=== PATIENT | male | born 1960 | race Caucasian/White ===

== ENCOUNTER 2016-07-19 20:39 | Inpatient (IN) | payer OTHER ==
--- NOTE | ~2016-07-19 | DS ---
Discharge Summary [facility] [address] [place]. [address] NAME: SOILA KELLEY : 62 STATUS : DIS IN PAT#: [id number] AGE: 56 ADM/REG DATE : 07/19/16 MR#: [id number] REPORT SERV DATE: 07/30/16 DICTATED BY: KANWAL GARCIA DATE: 07/29/16 REPORT STATUS : Draft TRANSCRIBED BY: MODPeewee DATE: 07/29/16 Data Collection from hospitalization DISCHARGE DIAGNOSIS(ES): 1. Mzr-GN-fzswddcgd myocardial infarction. 2. Coronary artery disease. 3. Colorectal cancer. 4. History of H. pylori infection. CONSULTATIONS: Andrae Kumar MD PROCEDURES PERFORMED: Cardiac catheterization and PCI, 07/20/2016. MEDICATIONS: Aspirin 81 mg daily, Lipitor 40 mg at bedtime, Plavix 75 mg daily, Colace 100 mg twice daily, Prinivil 2.5 mg daily, Lopressor 12.5 mg twice daily, Habitrol 14 mg daily, Prilosec 40 mg before breakfast, Percocet 10/325 one four times daily as needed, Phenergan 25 mg four times daily as needed, Pyridium 200 mg three times daily as needed, Zofran 8 mg three times daily as needed, and Remeron 15 mg at bedtime as needed. CONDITION AT DISCHARGE: Upon discharge, he did appear to be doing well. DISPOSITION: He had been discharged home to continue a 4 g sodium, low cholesterol, cardiac diet with activity as discussed. He was to follow up with Dr. Josue Aguayo on 08/25/2016. HOSPITAL COURSE: This 56-year-old male had no previous cardiovascular history and had a recent diagnosis of colorectal cancer. He had had substernal chest pain radiating to his left arm of approximately three days' duration. He was felt to have T3 or T4 disease and was recently diagnosed with colon cancer and he had been undergoing chemotherapy and radiation therapy prior to eventual surgical resection which had not yet been performed. He had been followed by Dr. Mason Calixto for his primary care and Dr. Andrae Kumar for his oncology care. Approximately, three days prior to admission, he began to notice a left- sided arm pain. He described this as an ache which was associated with a feeling of vague nausea, not feeling well. The pain became more severe and spread into the patient's chest. On the evening prior to admission, he had a particularly severe episode which woke him from sleep. He presented to [facility] where he was found to have elevated cardiac biomarkers. He was admitted for non ST-segment elevation myocardial infarction to undergo further evaluation and treatment. Upon admission to the hospital, he had been placed on acute coronary syndrome, non ST-elevation myocardial infarction orders. He was begun on metoprolol 25 mg twice daily. He had also been placed on cardiovascular heparin drip. Following the day of admission, his metoprolol was decreased to 12.5 mg twice daily and was to be held for systolic blood pressure below 110 or heart rate below 60. He had also been placed on Lipitor 40 mg at bedtime. Cardiac catheterization had been discussed with the patient. He was agreeable to proceed. He did undergo the above cardiac catheterization and PCI. He had tolerated this well and was transferred to the recovery room. He had also been seen on the day following admission by Dr. Andrae Kumar of Oncology. He had stated that antiplatelet therapy should not be an issue as the patient's surgery would be toward the end of 08/2016 and planning his chemotherapy would not affect therapy. He did agree with current treatment plan. On 07/21/2016, the patient was requesting discharge. He had no Discharge Summary [address] [address] NAME: SOILA KELLEY : 62 STATUS : DIS IN [facility]#: [id number] AGE: 56 ADM/REG DATE : 07/19/16 MR#: [id number] REPORT SERV DATE: 07/30/16 DICTATED BY: KANWAL GARCIA DATE: 07/29/16 REPORT STATUS : Draft TRANSCRIBED BY: SADAF DATE: 07/29/16 complaints of chest pain or shortness of breath. He was afebrile, and his vital signs were stable. He was in sinus rhythm on telemetry. He did appear to be doing well and had been ambulating. He was to be on aspirin and Plavix for one month, and aspirin was to be continued indefinitely. He was to follow up with Dr. Soila Gamble in two to three weeks. On 07/22/2016, the patient stated that he did feel good and had no complaints of chest pain, shortness of breath, or palpitations. He did remain in sinus rhythm on telemetry. He did continue to do well, and due to his stable condition, he was then discharged with the above instructions. Information collected by: Azael Moura. I submit the above information as my discharge summary. ELFEGO/SADAF Kanwal Garcia M.D. / [id number] CC: Dianne Izaguirre MD
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
[2016-07-19 21:22] LABS: BASOPHILS 1.2 %; BASOPHILS ABSOLUTE 0.07 10/3/uL (0.0-0.16); EOSINOPHILS 11.7 %; EOSINOPHILS ABSOLUTE 0.71 10/3/uL (0.0-0.53); HEMATOCRIT 39.6 % (40.0-51.0); HEMOGLOBIN 13.7 g/dL (13.6-17.8); IMMATURE GRANULOCYTES 0.5 %; IMMATURE GRANULOCYTES ABSOLUTE 0.03 10/3/uL (0.0-0.11); LYMPHOCYTES 9.6 %; LYMPHOCYTES ABSOLUTE 0.58 10/3/uL (0.67-4.30); MANUAL DIFF NO %; MEAN CORPUS HGB CONC 34.6 g/dL (32.0-36.0); MEAN CORPUSCULAR HEMOGLOB 32.2 pg (26.0-34.0); MEAN PLATELET VOLUME 9.6 fL (9.2-13.0); MONOCYTES 13.5 %; MONOCYTES ABSOLUTE 0.82 10/3/uL (0.21-1.20); NEUTROPHILS 63.5 %; NEUTROPHILS ABSOLUTE 3.86 10/3/uL (2.02-8.40); PLATELET COUNT 280 10/3/uL (150-400); RBC DISTRIBUTION WIDTH 19.4 % (12.0-16.0); RED CELL COUNT 4.26 10/6/uL (4.7-6.1); WHITE BLOOD CELLS 6.1 10/3/uL (4.5-10.5)
[2016-07-19 21:39] LABS: BUN (BLOOD UREA NITROGEN) 14 MG/DL (6-23); CALCIUM, SERUM 8.8 MG/DL (8.5-10.4); CHLORIDE, SERUM 109 MMOL/L (96-112); CO2 (CARBON DIOXIDE) 27 MMOL/L (24-34); CREATININE 0.98 MG/DL (0.70-1.30); GFR AFRICAN AMERICAN 100 ML/MIN (>=60); GFR NON AFRICAN AMERICAN 86 ML/MIN (>=60); GLUCOSE, SERUM 105 MG/DL (60-99); POTASSIUM, SERUM 4.3 MMOL/L (3.5-5.3); PROTIME (NOT ORD) 13.4 SEC (12.0-14.5); SODIUM, SERUM 141 MMOL/L (135-148)
[2016-07-19 21:40] LABS: PARTIAL THROMBO TIME 27.3 SEC (22.5-37.2)
[2016-07-19 21:43] LABS: CHEST PAIN PROFILE TAT 0 Hrs 25 Mins; TROPONIN I 0.65 NG/ML (<0.05)
[2016-07-19] MEDS ORDERED: PERCOCET 10/3251 TAB PO (22:38)
[2016-07-19] MEDS ORDERED: PRILOSEC40 MG PO (22:38)
[2016-07-19] MEDS ORDERED: PR25 PO (22:38)
[2016-07-19] MEDS ORDERED: REM15 PO (22:39)
[2016-07-19] MEDS ORDERED: PYR200 PO (22:39)
[2016-07-19] MEDS ORDERED: ZOFRAN8 PO (22:39)
[2016-07-20 04:49] LABS: BASOPHILS ABSOLUTE 0.05 10/3/uL (0.0-0.16); EOSINOPHILS 15.6 %; EOSINOPHILS ABSOLUTE 0.75 10/3/uL (0.0-0.53); HEMATOCRIT 39.3 % (40.0-51.0); HEMOGLOBIN 13.1 g/dL (13.6-17.8); IMMATURE GRANULOCYTES 0.4 %; IMMATURE GRANULOCYTES ABSOLUTE 0.02 10/3/uL (0.0-0.11); LYMPHOCYTES 13.3 %; LYMPHOCYTES ABSOLUTE 0.64 10/3/uL (0.67-4.30); MANUAL DIFF NO %; MEAN CORPUS HGB CONC 33.3 g/dL (32.0-36.0); MEAN CORPUSCULAR HEMOGLOB 31.4 pg (26.0-34.0); MEAN CORPUSCULAR VOLUME 94.2 fL (80-100); MEAN PLATELET VOLUME 9.5 fL (9.2-13.0); MONOCYTES 14.8 %; MONOCYTES ABSOLUTE 0.71 10/3/uL (0.21-1.20); NEUTROPHILS 54.9 %; NEUTROPHILS ABSOLUTE 2.64 10/3/uL (2.02-8.40); PLATELET COUNT 257 10/3/uL (150-400); RBC DISTRIBUTION WIDTH 19.4 % (12.0-16.0); RED CELL COUNT 4.17 10/6/uL (4.7-6.1); WHITE BLOOD CELLS 4.8 10/3/uL (4.5-10.5)
[2016-07-20 04:55] LABS: INTERNATIONAL NORMAL RATI 1.1 UNITS (-); PROTIME (NOT ORD) 13.8 SEC (12.0-14.5)
[2016-07-20 05:11] LABS: BUN (BLOOD UREA NITROGEN) 15 MG/DL (6-23); CALCIUM, SERUM 8.7 MG/DL (8.5-10.4); CHLORIDE, SERUM 109 MMOL/L (96-112); CHOL/HDL RATIO(NOT ORDER) 4.9 (0-5); CHOLESTEROL 153 MG/DL (< 200); CO2 (CARBON DIOXIDE) 26 MMOL/L (24-34); CREATININE 0.88 MG/DL (0.70-1.30); GFR AFRICAN AMERICAN 112 ML/MIN (>=60); GFR NON AFRICAN AMERICAN 97 ML/MIN (>=60); GLUCOSE, SERUM 105 MG/DL (60-99); HDL CHOLESTEROL 31 MG/DL (> 39); LDL CHOLESTEROL 105 MG/DL (< 130); NON-HDL CHOLESTEROL 122 MG/DL (< 160); POTASSIUM, SERUM 3.9 MMOL/L (3.5-5.3); SGPT(ALT) 19 U/L (5-65); SODIUM, SERUM 140 MMOL/L (135-148); TRIGLYCERIDE 87 MG/DL (< 150)
[2016-07-20 06:39] LABS: TROPONIN I 0.73 NG/ML (<0.05)
[2016-07-20 14:50] LABS: CK-MB 3.5 NG/ML; CPK 80 U/L (0-200)
[2016-07-21 04:21] LABS: HEMATOCRIT 41.1 % (40.0-51.0); HEMOGLOBIN 13.7 g/dL (13.6-17.8)
[2016-07-21 04:45] LABS: BUN (BLOOD UREA NITROGEN) 13 MG/DL (6-23); CALCIUM, SERUM 8.6 MG/DL (8.5-10.4); CHLORIDE, SERUM 111 MMOL/L (96-112); CK-MB 25.3 NG/ML; CKMB INDEX (NOT ORD) 8.3; CO2 (CARBON DIOXIDE) 24 MMOL/L (24-34); CPK 305 U/L (0-200); CREATININE 0.77 MG/DL (0.70-1.30); GFR AFRICAN AMERICAN 118 ML/MIN (>=60); GFR NON AFRICAN AMERICAN 102 ML/MIN (>=60); GLUCOSE, SERUM 95 MG/DL (60-99); SODIUM, SERUM 140 MMOL/L (135-148)
[2016-07-21 04:46] LABS: TROPONIN I 5.94 NG/ML (<0.05)
[2016-07-21 08:10] LABS: BASOPHILS 0.7 %; BASOPHILS ABSOLUTE 0.04 10/3/uL (0.0-0.16); EOSINOPHILS 12.4 %; EOSINOPHILS ABSOLUTE 0.75 10/3/uL (0.0-0.53); IMMATURE GRANULOCYTES 0.5 %; IMMATURE GRANULOCYTES ABSOLUTE 0.03 10/3/uL (0.0-0.11); LYMPHOCYTES 8.6 %; LYMPHOCYTES ABSOLUTE 0.52 10/3/uL (0.67-4.30); MEAN CORPUS HGB CONC 33.7 g/dL (32.0-36.0); MEAN CORPUSCULAR HEMOGLOB 31.6 pg (26.0-34.0); MEAN CORPUSCULAR VOLUME 93.5 fL (80-100); MONOCYTES 14.5 %; MONOCYTES ABSOLUTE 0.88 10/3/uL (0.21-1.20); NEUTROPHILS 63.3 %; NEUTROPHILS ABSOLUTE 3.85 10/3/uL (2.02-8.40); PLATELET COUNT 268 10/3/uL (150-400); RBC DISTRIBUTION WIDTH 19.2 % (12.0-16.0); RED CELL COUNT 4.31 10/6/uL (4.7-6.1); WHITE BLOOD CELLS 6.1 10/3/uL (4.5-10.5)
[2016-07-21 08:12] LABS: MANUAL DIFF NO %
[2016-07-21 12:20] LABS: CK-MB 19.6 NG/ML; CKMB INDEX (NOT ORD) 6.6
[2016-07-21 18:18] LABS: CK-MB 12.9 NG/ML
[2016-07-21 18:20] LABS: CKMB INDEX (NOT ORD) 5.7
[2016-07-22 00:54] LABS: CK-MB 8.1 NG/ML
[2016-07-22 00:56] LABS: CKMB INDEX (NOT ORD) 4.6
[2016-07-22 06:49] LABS: BUN (BLOOD UREA NITROGEN) 11 MG/DL (6-23); CALCIUM, SERUM 9.3 MG/DL (8.5-10.4); CHLORIDE, SERUM 110 MMOL/L (96-112); CK-MB 5.2 NG/ML; CO2 (CARBON DIOXIDE) 26 MMOL/L (24-34); CREATININE 0.85 MG/DL (0.70-1.30); GFR AFRICAN AMERICAN 114 ML/MIN (>=60); GFR NON AFRICAN AMERICAN 98 ML/MIN (>=60); GLUCOSE, SERUM 97 MG/DL (60-99); SODIUM, SERUM 140 MMOL/L (135-148)
[2016-07-22 06:50] LABS: CKMB INDEX (NOT ORD) 3.7; CPK 140 U/L (0-200)
[2016-07-22] MEDS ORDERED: LIPITOR40 PO (08:21)
[2016-07-22] MEDS ORDERED: ASAB PO (08:21)
[2016-07-22] MEDS ORDERED: PLAVIX PO (08:22)
[2016-07-22] MEDS ORDERED: DOCUSOFT S100 MG PO (08:22)
[2016-07-22] MEDS ORDERED: PRIN2.5 PO (08:23)
[2016-07-22] MEDS ORDERED: LOP25 PO (08:23)
[2016-07-22] MEDS ORDERED: HABIT14 TOP (08:24)
[2016-07-22] MEDS ORDERED: NITROSTAT0.4 MG SL (08:31)
[2016-09-21] MEDS ORDERED: MIRALAX POWDER1 PKT PO (08:39)
[2016-09-28] MEDS ORDERED: ACET500CAP PO (15:32)
[2016-09-28] MEDS ORDERED: FLOMAX4 PO (15:34)
[2016-09-28] MEDS ORDERED: PCET PO (15:36)
[2016-10-02] MEDS ORDERED: PR25 PO (05:54)
[2016-10-02] MEDS ORDERED: PYR200 PO (05:54)
[2016-10-02] MEDS ORDERED: PERCOCET 10/3251 TAB PO (05:55)
[2016-10-02] MEDS ORDERED: PLAVIX PO (05:55)
[2016-10-02] MEDS ORDERED: PRILOSEC40 MG PO (05:56)
[2016-10-02] MEDS ORDERED: ZOFRAN8 PO (05:56)
[2016-10-02] MEDS ORDERED: NITROQUICK0.4 MG SL (05:56)
[2016-10-02] MEDS ORDERED: HABIT14 TOP (05:57)
[2016-10-02] MEDS ORDERED: LOP25 PO (05:58)
[2016-10-02] MEDS ORDERED: REM15 PO (05:58)
[2016-10-02] MEDS ORDERED: PRIN2.5 PO (05:58)
[2016-10-02] MEDS ORDERED: LIPITOR40 PO (05:59)
[2016-10-02] MEDS ORDERED: DOCUSOFT S100 MG PO (05:59)
[2016-10-02] MEDS ORDERED: ASAB PO (05:59)
== END 2016-07-22 09:45 | disposition home or self-care (01) | DRG 247 ==
LOC: ER 20:39 → 5NO 22:51 → SSU1 07-20 13:47
PROVIDERS: Emergency Medicine; Internal Medicine Cardiovascular Disease
PROC: 027034Z Dilation of Coronary Artery, One Artery with Drug-eluting Intraluminal Device, Percutaneous Approach (ICD-10-PCS; principal; 2016-07-20)
PROC: 4A023N7 Measurement of Cardiac Sampling and Pressure, Left Heart, Percutaneous Approach (ICD-10-PCS; 2016-07-20)
PROC: B2151ZZ Fluoroscopy of Left Heart using Low Osmolar Contrast (ICD-10-PCS; 2016-07-20)
PROC: B2111ZZ Fluoroscopy of Multiple Coronary Arteries using Low Osmolar Contrast (ICD-10-PCS; 2016-07-20)
DX: I21.4 Non-ST elevation (NSTEMI) myocardial infarction (principal); I47.2 Ventricular tachycardia; C20 Malignant neoplasm of rectum; I25.10 Atherosclerotic heart disease of native coronary artery without angina pectoris; F17.210 Nicotine dependence, cigarettes, uncomplicated; Z80.0 Family history of malignant neoplasm of digestive organs; Z00.6 Encounter for examination for normal comparison and control in clinical research program; Z92.3 Personal history of irradiation; Z92.21 Personal history of antineoplastic chemotherapy
CPT/HCPCS: 71010; 80048; 80061; 82550; 82553; 83735; 84460; 84484; 85025; 85347; 85610; 85730; 93005; 93458; 99152; 99153; 99285; A9270-GY; C1725; C1769; C1887; C1894; C9600; J2250; J3010; Q9967